=== PATIENT | female | born 1955 | race Two or more races ===

== ENCOUNTER 2019-11-10 06:04 | Day surgery (SDC) | payer OTHER ==
[~2019-11-10 06:04] MED LIST: COZAAR25 MG PO; MELOXICAM15 MG PO
[2019-11-10] MEDS ORDERED: FLAGYL500MG PO (09:20)
== END 2019-11-10 12:35 | disposition home or self-care (01) ==
LOC: CIR.AMB 06:04 → ADM 09:00 → CIR.AMB 09:00
DX: N84.0 Polyp of corpus uteri (principal)

== ENCOUNTER 2024-06-07 08:00 | Outpatient (CLI) | payer OTHER ==
[~2024-06-07 08:00] MED LIST changes: +FLAGYL500MG PO
== END 2024-06-07 08:01 | disposition home or self-care (01) ==
LOC: NUCLEAR 08:00
PROVIDERS: ATTEND Internal Medicine Hematology & Oncology
DX: C50.411 Malignant neoplasm of upper-outer quadrant of right female breast (principal); C77.3 Secondary and unspecified malignant neoplasm of axilla and upper limb lymph nodes
CPT/HCPCS: 78815; A9552

== ENCOUNTER 2025-08-31 22:14 | Emergency (ER) | payer OTHER ==
[~2025-08-31] VITALS: Ht 154.9 cm; Wt 97.5 kg
[2025-08-31] MEDS ORDERED: COZAAR50 MG PO (23:17)
[2025-08-31] MEDS ORDERED: LYRICA200 MG PO (23:18)
[2025-08-31] MEDS ORDERED: CRESTOR40 MG PO (23:18)
[2025-09-01] MEDS ORDERED: METHYLPREDNISOLONE SOD SUCC 125 MG VIAL IV STA (00:03)
[2025-09-01] MEDS ORDERED: LEVALBUTEROL HCL 0.63 MG/3 ML SOLUTION IH SCH (00:15)
[2025-09-01] MEDS ORDERED: METHYLPREDNISOLONE SOD SUCC 125 MG VIAL ONE (00:48)
[2025-09-01 01:36] LABS: BASO % 0.4 % (0.1-1.2); EOS # 0.11 (0.04-0.54); EOS % 2.2 % (0.7-7.0); LYMPH # 1.08 (1.18-3.74); LYMPH % 21.9 % (19.3-53.1); MEAN PLATELET VOLUME 11.80 fl (9.4-12.4); MONO # 0.37 (0.24-0.82); MONO % 7.5 % (4.7-12.5); NEUT # 3.34 (1.56-6.13); NEUT % 67.8 % (34.0-71.1); RED CELL DISTRIBUTION WIDTH 12.3 % (11.6-14.4)
[2025-09-01 01:45] LABS: INR 1.04
[2025-09-01 01:54] LABS: ALT/SGPT 31.0 U/L (12-78); AST/SGOT 22.0 U/L (15-37); BILIRUBIN TOTAL 0.68 mg/dL (0.3-1.2); BUN CREA RATIO 22.0 (7.0-25.0); CREATININE SERUM 0.79 mg/dL (0.55-1.02); GFR 71.74; GLOBULINA 3.7 G/DL (2.4-3.5); GLUCOSE FASTING 101.0 mg/dL (65-100); OSMOLALITY SERUM 294.0 MOSM/KG (275-295)
[2025-09-01 02:35] LABS: COVID-19 AG NEGATIVE (NEGATIVE)
[2025-09-01 02:58] LABS: URINE APPEARANCE Clear; URINE BILIRRUBIN Negative (NEGATIVE); URINE BLOOD Negative; URINE COLOR Yellow; URINE GLUCOSE Negative (NEGATIVE); URINE KETONE Trace (NEGATIVE); URINE LEUKOCYTE Negative; URINE NITRATE Negative; URINE PROTEIN Negative (NEGATIVE); URINE UROBILINOGEN 0.2 E.U./dl
[2025-09-01 03:01] LABS: URINE BACTERIA 9.5 uL (0.0-1933); URINE EPITHELIAL CELLS 1.9 uL (0.0-38.8); URINE RBC 2.7 uL (0.0-20.8); URINE WBC 8.1 uL (0.0-23.2)
[2025-09-01] MEDS ORDERED: LEVALBUTEROL HCL 1.25 MG/3 ML SOLUTION IH ONE (03:24)
[2025-09-01 03:33] LABS: URINE CAST 0.00 uL (0.0-1.40)
[2025-09-01] MEDS ORDERED: GUAIFENESIN 200 MG/10 ML BLIST.PACK PO STA (04:43)
[2025-09-01] MEDS ORDERED: GUAIFENESIN 200 MG/10 ML BLIST.PACK PO ONE (05:52)
[2025-09-01] MEDS ORDERED: ZYNCOF 20-400120 ML PO (06:02)
[2025-09-01] MEDS ORDERED: LEVALBUTER0.63 MG/3 IH (06:02)
[2025-09-01] MEDS ORDERED: BUDESONIDE0.5 MG/2 M IH (06:02)
== END 2025-09-01 06:28 ==
LOC: ER 22:15
PROVIDERS: General Practice
DX: R06.02 Shortness of breath (principal); Z91.040 Latex allergy status; Z88.2 Allergy status to sulfonamides; I10 Essential (primary) hypertension; R05.8 Other specified cough; Z20.822 Contact with and (suspected) exposure to COVID-19
CPT/HCPCS: 36415; 82803; 94640; 96365; 99283; J3490